=== PATIENT | male | born 1955 | race Caucasian/White ===

== ENCOUNTER → 2019-03-09 | Outpatient (CLI) | payer MEDICARE, BC ==
--- NOTE | 2019-03-09 09:49 | CT ---
EXAMINATION TYPE: CT soft tissue neck w con DATE OF EXAM: 03/09/2019 COMPARISON: CTA 08/23/2015 HISTORY: Swelling Lt neck CT DLP: 633 mGycm CONTRAST: Patient injected with 80 mL of Isovue 300. TECHNIQUE: Axial images at 3 mm thick sections. Reconstructed images in the coronal plane and sagitt al plane are reviewed. FINDINGS: Limited CT sections are obtained the lung apices. The lung apices appear clear. CT neck: The torus tubarius and fossa of Rosenmuller are normal. [employer] spaces are normal. Para nasal sinuses and mastoid air cells are clear. Parotid glands appear normal and symmetrical. Submandibular glands, are normal. Left submandibular g land level marked by the BB appears unremarkable. No underlying masses are evident. Couple small lymp h nodes are present. Subcutaneous tissues are normal. Parapharyngeal spaces are normal. No suspiciou s adenopathy is evident. There is some fullness along the right tonsillar pillar at the level of the uvula. Direct visualizati on posterior pharynx is recommended. Attention to the right Wall should performed. This fullness is a n interval change from the comparison. Vocal cord level appear symmetrical. Thyroid as visualized is normal. Osseous structures are normal. IMPRESSIONS: 1. There appears to be some mild fullness of the right tonsillar pillar region which is an interval c hange. Follow-up is recommended. 2. No suspicious mass evident at the level of the left neck marked by the BB.
== END | disposition home or self-care (01) ==
LOC: RADCTMAIN 07:00
PROVIDERS: ATTEND Family Medicine
DX: R22.1 Localized swelling, mass and lump, neck (principal); Z88.0 Allergy status to penicillin
CPT/HCPCS: 82565; 84520; 70491; 36415; Q9967

== ENCOUNTER → 2020-12-21 | Outpatient (CLI) | payer MEDICARE, BC ==
--- NOTE | 2020-12-21 14:53 | MR ---
EXAMINATION TYPE: MR lumbar spine wo con DATE OF EXAM: 12/21/2020 COMPARISON: Radiographs 11/25/2020 HISTORY: 65-year-old male and 5 4.5, right leg pain TECHNIQUE: Multiplanar, multisequence images of the lumbar spine were acquired without IV contrast. FINDINGS: Vertebral body heights are preserved. No suspicious bone marrow replacement. Hypertrophic facet arthropathy lower lumbar spine. Associated right greater than left L4-L5 facet alberto nt effusions. Ligamentum flavum thickening L3-L4 and L4-L5. Mild multilevel degenerative disc disease with desiccated and mildly narrowed discs. Disc bulging is also present. Conus medullaris is normal. Degenerative grade 1 anterolisthesis L4-L5. At T12-L1, no spinal canal or foraminal stenosis. At L1-L2, mild diffuse disc bulge. There is impression on the ventral thecal sac without significant spinal canal stenosis. No neuroforaminal stenosis. At L2-L3, diffuse disc bulge and mild facet arthropathy. There is impression on the ventral thecal sa c without significant spinal canal stenosis. No significant neural foraminal process. At L3-L4, diffuse disc bulge with ligamentum flavum thickening and prominent dorsal epidural fat. The re is moderate narrowing of the thecal sac. There is also moderate right and mild left neuroforaminal stenosis. At L4-L5, there is a central, right paracentral disc extrusion with superior migration of disc materi al. There may be a sequestered disc fragment measuring 1.6 cm wide by 1.5 cm craniocaudal by 0.8 cm A P on the backside of the L4 vertebral body. This causes moderate to severe focal spinal canal stenosi s, probable impingement of the traversing right L5 nerve root, and along with ligamentum flavum thick ening and facet arthropathy, mild bilateral neuroforaminal stenosis. At L5-S1, mild disc bulge. Tiny left paracentral protrusion. No significant spinal canal stenosis. Fa cet arthropathy. Left lateral disc osteophyte complex may abut the exiting left L5 nerve root, axial images for and sagittal image 3. IMPRESSION: 1. Mild multilevel degenerative disc disease. Ligamentum flavum thickening lower lumbar spine. 2. Hypertrophic facet arthropathy lower lumbar spine, moderate to severe at L4-L5 with associated alberto nt effusions. 3. Degenerative grade 1 anterolisthesis at L4-L5. 4. At L4-L5, there is a central, right paracentral disc herniation with superior migration of disc ma terial. The sequestered disc fragment measures 1.6 x 1.5 x 0.8 cm along the back side of the L4 verte bral body. There is moderate to severe focal spinal canal stenosis and probable impingement of the tr aversing right L5 nerve root. 5. At L3-L4, there is moderate narrowing of the thecal sac and moderate right neuroforaminal stenosis . 6. At L5-S1, there is a left lateral disc osteophyte complex that may abut the exiting left L5 nerve root.
== END | disposition home or self-care (01) ==
LOC: RADMRIMAIN 10:51
PROVIDERS: ATTEND Orthopaedic Surgery
DX: M51.36 Other intervertebral disc degeneration, lumbar region (principal); M48.061 Spinal stenosis, lumbar region without neurogenic claudication
CPT/HCPCS: 72148

== ENCOUNTER → 2021-01-04 | Outpatient (CLI) | payer MEDICARE, BC ==
--- NOTE | 2021-01-05 08:43 | US ---
EXAMINATION TYPE: US kidneys/renal and bladder DATE OF EXAM: 01/04/2021 COMPARISON: NONE CLINICAL HISTORY: 65-year-old male N28.9 CKD. TECHNIQUE: Multiple sonographic images of the kidneys and bladder are obtained. FINDINGS: EXAM MEASUREMENTS: Right Kidney: 10.6 x 5.0 x 5.2 cm Left Kidney: 10.1 x 5.1 x 4.9 cm No hydronephrosis on either side. Bladder: wnl Bilateral Jets seen: Yes Incidental echogenic liver. IMPRESSION: 1. No hydronephrosis. 2. Incidental hepatic steatosis. Correlate with LFTs, lipid profile, and patient risk factors.
== END | disposition home or self-care (01) ==
LOC: RADUSWWP 16:07
PROVIDERS: ATTEND Family Medicine
DX: K76.0 Fatty (change of) liver, not elsewhere classified (principal); N28.9 Disorder of kidney and ureter, unspecified
CPT/HCPCS: 76770

== ENCOUNTER → 2021-01-20 | Outpatient (CLI) | payer MEDICARE, BC ==
[2021-01-20 20:49] LABS: African American GFR (CKD) 69.3 (60.0-200.0); Anion Gap 12.8 mmol/L (4.00-12.00); BUN/Creat Ratio 11.37 Ratio (12.00-20.00); Blood Urea Nitrogen 14.1 mg/dL (9.0-27.0); Carbon Dioxide 27.2 mmol/L (21.6-31.8); Magnesium 2.2 mg/dL (1.5-2.4); Non-African American GFR(CKD) 59.8 (60.0-200.0); Potassium 4.6 mmol/L (3.5-5.5)
== END | disposition home or self-care (01) ==
LOC: LABWHC1 11:36
PROVIDERS: ATTEND Internal Medicine
DX: N18.31 Chronic kidney disease, stage 3a (principal)
CPT/HCPCS: 36415; 80048; 83735

== ENCOUNTER → 2021-04-20 | Outpatient (CLI) | payer MEDICARE, BC ==
[2021-04-20 12:40] LABS: Appearance,Urine Clear (Clear); Bilirubin,Urine Negative (Negative); Blood,Urine Negative (Negative); Color,Urine Yellow; Glucose,Urine (UA) Negative (Negative); Ketones,Urine Negative (Negative); Leukocyte Esterase,Urine Negative (Negative); Nitrite,Urine Negative (Negative); PH, Urine 6.5 (5.0-8.0); Protein,Urine Negative (Negative); Specific Gravity,Urine 1.021 (1.001-1.035); Urobilinogen,Urine <2.0 mg/dL (<2.0)
[2021-04-20 15:01] LABS: HCT 44.4 % (39.6-50.0); HGB 14.7 g/dL (13.0-17.0); MCH 30.1 pg (27.0-32.0); MCHC 33.1 g/dL (32.0-37.0); MCV 90.8 fL (80.0-97.0); Mean Platelet Volume 10.3 fL (9.5-12.2); Platelet Count 248 X 10*3/uL (140-440); RBC 4.89 X 10*6/uL (4.40-5.60); RDW 12.6 % (11.5-14.5); WBC 6.12 X 10*3/uL (4.50-10.00)
[2021-04-20 15:14] LABS: % Iron Saturation 30.49 (15.00-50.00); Anion Gap 15.2 mmol/L (10.00-18.00); Blood Urea Nitrogen 17.4 mg/dL (9.0-27.0); Carbon Dioxide 24.7 mmol/L (20.0-27.5); Globulin 2.5 g/dL (1.6-3.3); Non-African American GFR(CKD) 64.8 (60.0-200.0); Potassium 4.3 mmol/L (3.5-5.5)
[2021-04-20 15:15] LABS: African American GFR (CKD) 75.1 (60.0-200.0); Albumin 4.8 g/dL (3.8-4.9); Albumin/Globulin Ratio 1.9 (1.60-3.17); Calcium 9.7 mg/dL (8.7-10.3); Magnesium 1.9 mg/dL (1.5-2.4); Phosphorus 3.2 mg/dL (2.4-5.1); Total Bilirubin 0.5 mg/dL (0.30-1.20); Total Protein 7.3 g/dL (6.2-8.2); Uric Acid 6.9 mg/dL (3.7-8.7)
[2021-04-21 08:42] LABS: Microalbumin Creatinine Ratio <30 mg/g Creat (0-30)
== END | disposition home or self-care (01) ==
LOC: LABWHC1 09:43
PROVIDERS: ATTEND Internal Medicine
DX: N18.31 Chronic kidney disease, stage 3a (principal); D64.9 Anemia, unspecified; N39.0 Urinary tract infection, site not specified; R80.9 Proteinuria, unspecified; N25.81 Secondary hyperparathyroidism of renal origin; E55.9 Vitamin D deficiency, unspecified; M10.9 Gout, unspecified
CPT/HCPCS: 36415; 80053; 81003; 82043; 82306; 82570; 82728; 83540; 83550; 83735; 83970; 84100; 84550; 85027

== ENCOUNTER → 2021-07-11 | Outpatient (CLI) | payer MEDICARE, BC ==
[2021-07-11 14:31] LABS: Basophils # (A) 0.05 X 10*3/uL (0.00-0.10); Basophils % (A) 0.9 %; Eosinophils # (A) 0.19 X 10*3/uL (0.04-0.35); Eosinophils % (A) 3.3 %; HCT 42.7 % (39.6-50.0); HGB 14.5 g/dL (13.0-17.0); Immature Grans, Automated 0.2 %; Lymphocytes # (A) 1.37 X 10*3/uL (0.90-5.00); Lymphocytes % (A) 23.6 %; MCH 30.6 pg (27.0-32.0); MCV 90.1 fL (80.0-97.0); Mean Platelet Volume 10.4 fL (9.5-12.2); Monocytes # (A) 0.51 X 10*3/uL (0.20-1.00); Monocytes % (A) 8.8 %; NRBC Per 100 WBC 0 /100 WBCS (0.0-0.0); Neutrophils # (A) 3.67 X 10*3/uL (1.80-7.70); Neutrophils % (A) 63.2 %; Platelet Count 245 X 10*3/uL (140-440); RBC 4.74 X 10*6/uL (4.40-5.60); RDW 12.8 % (11.5-14.5)
[2021-07-11 15:16] LABS: ALT 37 U/L (10-49); AST 40 U/L (14-35); African American GFR (CKD) 70.2 (60.0-200.0); Albumin 4.8 g/dL (3.8-4.9); Albumin/Globulin Ratio 2.23 (1.60-3.17); Alkaline Phosphatase 53 U/L (41-126); BUN/Creat Ratio 13.03 Ratio (12.00-20.00); Blood Urea Nitrogen 15.9 mg/dL (9.0-27.0); Calcium 9.7 mg/dL (8.7-10.3); Carbon Dioxide 26.6 mmol/L (20.0-27.5); Chloride 101 mmol/L (96-109); Chol/HDL Ratio 4.01 Ratio; Globulin 2.1 g/dL (1.6-3.3); Glucose 194 mg/dL (70-110); LDL Cholesterol,Calculated 69.6 mg/dL (0.0-131.0); Non-African American GFR(CKD) 60.5 (60.0-200.0); Potassium 4.5 mmol/L (3.5-5.5); Sodium 140 mmol/L (135-145); Total Protein 6.9 g/dL (6.2-8.2)
== END | disposition home or self-care (01) ==
LOC: LABWHC1 09:00
PROVIDERS: ATTEND Internal Medicine Interventional Cardiology
DX: R74.8 Abnormal levels of other serum enzymes (principal); E78.2 Mixed hyperlipidemia
CPT/HCPCS: 36415; 80053; 80061; 85025